=== PATIENT | male | born 2000 | race Caucasian/White ===

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

== ENCOUNTER 2021-03-21 11:00 | Outpatient (RCR) | payer OTHER, MEDICAID ==
[~2021-03-21 11:00] MED LIST changes: +PREDNISONE20 MG PO
== END 2021-03-23 | disposition home or self-care (01) ==
LOC: MKS.ESL.PT
DX: Z09 Encounter for follow-up examination after completed treatment for conditions other than malignant neoplasm (principal); Z87.81 Personal history of (healed) traumatic fracture; V89.9XXS Person injured in unspecified vehicle accident, sequela

== ENCOUNTER 2021-04-12 09:00 | Outpatient (RCR) | payer OTHER, MEDICAID | END 2021-04-23 | disposition home or self-care (01) | LOC: MKS.ESL.PT | DX: S72.92XD Unspecified fracture of left femur, subsequent encounter for closed fracture with routine healing (principal); V89.9XXS Person injured in unspecified vehicle accident, sequela; Z98.890 Other specified postprocedural states ==